=== PATIENT | male | born 1945 | race Asian ===

== ENCOUNTER 2020-04-17 10:43 | Emergency (ER) | payer MEDICARE, OTHER ==
[~2020-04-17] VITALS: Ht 165.1 cm; Wt 84.5 kg
[2020-04-17] MEDS ORDERED: ASPI-728 PO (10:55)
[2020-04-17] MEDS ORDERED: INSNOV SQ (10:55)
[2020-04-17] MEDS ORDERED: ALLO-45 PO (10:55)
[2020-04-17] MEDS ORDERED: FURO20 PO (10:55)
[2020-04-17] MEDS ORDERED: INSLAN SQ (10:55)
[2020-04-17] MEDS ORDERED: CETI-450 PO (10:55)
[2020-04-17] MEDS ORDERED: SITA50 PO (10:55)
[2020-04-17] MEDS ORDERED: ATOR40TA28 PO (10:55)
[2020-04-17] MEDS ORDERED: LOSA50TA37 PO (10:55)
[2020-04-17] MEDS ORDERED: AMLO-257 PO (10:55)
[2020-04-17] MEDS ORDERED: ALLO-44 PO (11:00)
[2020-04-17 12:27] VITALS: BP 139/65
== END 2020-04-17 12:47 | disposition home or self-care (01) ==
LOC: EMS 10:59
DX: R50.9 Fever, unspecified (principal); R05 Cough; I10 Essential (primary) hypertension; E11.9 Type 2 diabetes mellitus without complications; Z20.828 Contact with and (suspected) exposure to other viral communicable diseases; Z79.4 Long term (current) use of insulin; Z79.82 Long term (current) use of aspirin; Z79.899 Other long term (current) drug therapy